=== PATIENT | female | born 1960 | race African-American/Black ===

== ENCOUNTER → 2017-12-13 | Outpatient (CLI) | payer OTHER ==
[2017-12-13] VITALS (7 sets, daily range): BP systolic 145–167; BP diastolic 84–101
[~2017-12-13] VITALS: Ht 165.1 cm; Wt 87.1 kg
[~2017-12-13] MED LIST: ASPIR 8181 MG PO; CARVEDILOL12.5 MG PO; COZAAR 25 MG TA25 M1 PO; FUROSEMIDE 20 M20 MG PO; GLUCOPHAGE XR750 MG PO; JANUVIA100 MG PO; KEFLEX500 M1 PO; LASIX 40 MG TAB40 M2; LEVSIN0.125 MG PO; POTASSIUM20 PO; PRILOSEC 20 MG20 MG PO; PRINIVIL20 MG PO; ZOCOR20 MG PO
[2017-12-13 09:27] LABS: HEMATOCRIT 38.4 % (37.0-47.0); HEMOGLOBIN 12.5 gm/dL (12.0-15.0); MCH 25.5 pg (26.0-34.0); MCHC 32.5 g/dL (28.0-37.0); MCV 78.4 fL (80.0-100.0); RBC 4.89 mil/uL (4.20-5.00); RDW-CV 14.9 % (10.5-14.5)
[2017-12-13 09:35] LABS: ANION GAP 11 mmol/L (7-16); BUN 15 mg/dL (7-18); CALCIUM 9.1 mg/dL (8.5-10.1); CHLORIDE 104 mmol/L (98-107); CO2 25 mmol/L (21-32); CREATININE 0.9 mg/dL (0.6-1.3); GLUCOSE 122 mg/dL (70-99); POTASSIUM 4.2 mmol/L (3.5-5.1); SODIUM 140 mmol/L (136-145)
[2017-12-13 09:38] LABS: APTT 23.7 Seconds (25.0-31.3); INR 1.1; PROTIME 10.3 Seconds (9.20-11.50)
[2017-12-13 09:40] LABS: ALBUMIN 3.8 g/dL (3.4-5.0); ALKALINE PHOSPHATASE 45 U/L (46-116); CHOLESTEROL 158 mg/dL (<200); HDL CHOLESTEROL 48 mg/dL (>40); LDL CHOLESTEROL 95 mg/dL (<100); SGOT 25 U/L (15-37); SGPT 30 U/L (30-65); TC:HDL 3.3 Ratio (Not establshd); TOTAL BILIRUBIN 0.5 mg/dL (<0.1-1.0); TOTAL PROTEIN 8.4 g/dL (6.4-8.2); TRIGLYCERIDE 77 mg/dL (<150); VLDL 15 mg/dL (<40)
[2017-12-13 09:41] LABS: SERUM ASSESSMENT Clear
--- NOTE | 2017-12-13 14:32 | EKG ---
[place] [address] ELECTROCARDIOGRAM REPORT Name: SAMAYOAMARY Room: [facility]#: [id number] Admission: 12/13/17 Attend Phys: Daniel Arzola MD Discharge: Date of : 62 Report #: [id number] THIS REPORT FOR: //name// [facility] Test Date: 2017-12-13 Test Time: 09:07:48 Pat Name: MARY SAMAYOA Department: Room: Gender: F Key Account Director: : 1960 Requested By: Daniel Arzola Order Number: [id number] Reading MD: Daniel Arzola Measurements Intervals Freedom Rate: 89 P: 42 NE: 146 QRS: -27 QRSD: 98 T: 121 QT: 386 QTc: 470 Interpretive Statements Sinus rhythm LVH with secondary repolarization abnormality Compared to ECG 05/07/2016 12:44:18 Early repolarization now present Electronically Signed On 12-13-2017 14:32:01 CDT by Daniel Arzola [email or web address] <ELECTRONICALLY SIGNED> By: Daniel Arzola MD, [facility] 12/13/17 1432 [id number] Daniel Arzola MD, [facility] /EPI
--- NOTE | 2017-12-15 13:14 | CARD ---
[address] [address] CARDIAC CATH REPORT Name: MARY SAMAYOA [id number] Admission: 12/13/17 Attend Phys: Daniel Arzola MD Discharge: Date of : 62 Report #: [id number] THIS REPORT FOR: //name// APPROVED REPORT Study performed: 12/13/2017 09:53:46 Patient Details Patient Status: Out-Patient Room #: The patient is a 57 year-old female Event Personnel Daniel Arzola Client Application Support Engineer, Radha Carranza RN Graphic Art Sales Representative, Lorena Dowling Monitor, Jessica Peterson RTR Scrub, Racquel Harris RN Monitor Procedures Performed Art Access - R radial artery Left Heart Cath w/or w/o Coronaries Hemostasis with Hemoband Procedure Narrative The patient was brought electively to the Cardiac Catheterization Laboratory and was prepped and draped in a sterile manner. The right wrist was infiltrated with 2% Lidocaine subcutaneous anesthesia. A Slender Glidesheath sheath was inserted into the right radial artery. Coronary angiography was performed using coronary diagnostic catheters. The right coronary system was accessed and visualized with a DCR: Stollings 4.0 5fr catheter. The left coronary system was accessed and visualized with a AL1 5fr LCB 5fr catheter. The left ventricle was accessed and visualized with a PC: Angled Pig 5fr catheter. There was no hematoma. Intraoperative Conscious Sedation Sedation start time: 11:03 Case end Time: 12:01 Fentanyl 25 mcg Versed 2 mg Fluoro Time: 22.9 minutes Dose: 2748 mGy Contrast Type and Amount: Omnipaque 230 ml Coronary Angiography The patient's coronary anatomy is right [place] [address] CARDIAC CATH REPORT Name: MARY SAMAYOA Room: [facility]#: [id number] Admission: 12/13/17 Attend Phys: Daniel Arzola MD Discharge: Date of : 62 Report #: [id number] Left Main The left main coronary artery has an upward takeoff and is angiographically normal LAD Approximately this is a large vessel with mild disease, less than 10%, mid body. This vessel narrows and has a focal 40-50% stenosis in the apical LAD is very small and diffusely disease in the 50-70% range Diagonal 1 This is a large tortuous vessel with only mild disease proximally in the 20-30% range Circumflex The proximal circumflex coronary artery is large and angiographically normal, mid body has smooth 20-30% stenosis, distal circumflex is normal. It is small. OM1 This is a large vessel and has no disease OM2 This is a large vessel and is very tortuous but has only mild disease in the 20-30% range. Distally Right Coronary This is a very tortuous vessel and particularly the proximal and mid body, however, there are very mild stenoses less than 20% mid body. R PDA Medium size, normal RPLV Medium-sized and normal Left Ventriculography The left ventricle is mildly dilated in size with reduced contractility. The left ventricular ejection fraction is estimated to be 40-45%. Left ventricular wall motion abnormalities are not present. There is 1+ mitral insufficiency. No segmental wall motion abnormality Hemodynamics The aortic pressure is 114/83 mmHg with a mean of 97 mmHg. The left ventricular pressure is 133/11 mmHg with a mean of mmHg. The left ventricular end diastolic pressure is 27 mmHg. Conclusion 1. Moderate coronary disease involving the distal, apical LAD which itself is a small vessel, recommended medical therapy 2. Moderate LV systolic dysfunction 3. Nonischemic cardiomyopathy Recommendations Aggressive Medical Therapy <ELECTRONICALLY SIGNED> By: Daniel Arzola MD, FACC 12/15/17 1313 1313 1313Daniel Arzola MD, FACC /INF
== END | disposition home or self-care (01) ==
LOC: M.CL 08:36
PROVIDERS: Internal Medicine Cardiovascular Disease
DX: I25.10 Atherosclerotic heart disease of native coronary artery without angina pectoris (principal); I50.1 Left ventricular failure, unspecified; I42.9 Cardiomyopathy, unspecified; I10 Essential (primary) hypertension; E11.9 Type 2 diabetes mellitus without complications; E78.5 Hyperlipidemia, unspecified; Z85.3 Personal history of malignant neoplasm of breast; Z90.710 Acquired absence of both cervix and uterus; Z98.890 Other specified postprocedural states; Z88.2 Allergy status to sulfonamides; Z79.899 Other long term (current) drug therapy; Z79.82 Long term (current) use of aspirin; Z79.01 Long term (current) use of anticoagulants